=== PATIENT | female | born 1955 ===

== ENCOUNTER 2016-07-15 10:43 | Day surgery (SDC) | payer BC ==
[~2016-07-15] VITALS: Ht 157.5 cm; Wt 80.5 kg
[~2016-07-15 10:43] MED LIST: ASPIRIN 81M81 MG/TA2 PO; CELLCEPT 5500 MG/TAB PO; GINKO BILOBA120 MG PO; HYDRODIURIL50 MG PO; PROGRAF 1MG1 MG PO; SENSIPAR60 MG PO; ULTRAM 50MG TAB50 MG PO; UNISOM25 MG PO; ZOLOFT 50MG50 MG PO; estroven PO
[2016-07-15 11:34] VITALS: BP 162/92; PULSE 73; TEMP 97.7
[2016-07-15] MEDS ORDERED: CELLCEPT 250MG250 MG PO ×2 (11:41→11:42)
[2016-07-15] MEDS ORDERED: NOVLOG SQ (11:45)
[2016-07-15] MEDS ORDERED: COLESTID 1GM1 G PO (11:46)
[2016-07-15] MEDS ORDERED: VITAMIN B11000 MCG/M IM (11:46)
[2016-07-15] MEDS ORDERED: TOPROL XL200 MG PO (11:47)
[2016-07-15] MEDS ORDERED: LEXAPRO 5MG5 MG PO (11:47)
[2016-07-15] MEDS ORDERED: XANAX .25M0.25 MG/TA PO (11:48)
[2016-07-15] MEDS ORDERED: LOMOTIL 0.025 M1 TAB PO (11:49)
[2016-07-15 12:05] VITALS: BP 128/66; PULSE 76; TEMP 98.3
[2016-07-15 12:15] VITALS: BP 117/66; PULSE 71
[2016-07-15 12:30] VITALS: BP 123/69; PULSE 66
[2016-07-15 13:01] VITALS: BP 158/82; PULSE 77
== END 2016-07-15 12:57 | disposition home or self-care (01) ==
LOC: SDCO 10:43
DX: K21.9 Gastro-esophageal reflux disease without esophagitis (principal); K30 Functional dyspepsia; E66.01 Morbid (severe) obesity due to excess calories; Z68.32 Body mass index [BMI] 32.0-32.9, adult; R63.4 Abnormal weight loss; Z94.0 Kidney transplant status; Z90.710 Acquired absence of both cervix and uterus
CPT/HCPCS: J2250; J3010; J7030

== ENCOUNTER → 2016-08-02 | Outpatient (CLI) | payer BC ==
[~2016-08-02] MED LIST changes: +CELLCEPT 250MG250 MG PO; +COLESTID 1GM1 G PO; +LEXAPRO 5MG5 MG PO; +LOMOTIL 0.025 M1 TAB PO; +NOVLOG SQ; +TOPROL XL200 MG PO; +VITAMIN B11000 MCG/M IM; +XANAX .25M0.25 MG/TA PO
== END ==
LOC: COL.RAD 10:14
DX: N26.1 Atrophy of kidney (terminal) (principal); K76.89 Other specified diseases of liver; Z94.0 Kidney transplant status; R11.0 Nausea